=== PATIENT | female | born 1935 | race Caucasian/White ===

== ENCOUNTER 2017-05-20 08:50 | Inpatient (IN) | payer MEDICARE, OTHER ==
[2017-05-07 15:29] LABS: BASOPHILS # (AUTO) 0.1 X10'3 (0-0.2); BASOPHILS % (AUTO) 0.8 % (0-1); EOSINOPHILS # (AUTO) 0.3 X10'3 (0-0.9); LYMPHOCYTES # (AUTO) 1.2 X10'3 (1.1-4.8); LYMPHOCYTES % (AUTO) 16.9 % (21-51); MEAN CORPUSCULAR HGB CONC 33.9 % (33.0-36.5); MEAN CORPUSCULAR VOLUME 82.7 FL (78-98); MONOCYTES # (AUTO) 0.6 X10'3 (0-0.9); MONOCYTES % (AUTO) 8.8 % (2-12); NEUTROPHILS # (AUTO) 5.1 X10'3 (1.8-7.7); NEUTROPHILS % (AUTO) 69.5 % (42-75); PRE OP HEMATOCRIT 38.6 % (35.0-45.0); PRE OP HEMOGLOBIN 13.1 g/dL (12.0-16.0); PRE OP PLATELET COUNT 251 X10'3 (140-440); RED BLOOD COUNT 4.67 X10'6 (4.20-5.60); RED CELL DISTRIBUTION WIDTH 14.6 % (11.5-14.5)
[2017-05-07 15:43] LABS: PRE OP INR 0.9 INR; PRE OP PROTIME 9.6 SECONDS (9.0-12.0)
[2017-05-07 15:48] LABS: ALBUMIN 3.9 G/DL (3.4-5.0); ALBUMIN/GLOBULIN RATIO 1.2 (1.1-1.5); ALKALINE PHOSPHATASE 68 IU/L (46-116); BLOOD UREA NITROGEN 22 MG/DL (7-18); BUN/CREATININE RATIO 27.8 (6.6-38.0); CALCIUM 9.5 MG/DL (8.5-10.1); CHLORIDE 98 MMOL/L (99-107); CREATININE 0.79 MG/DL (0.40-0.90); PRE OP ALT 33 U/L (30-65); PRE OP ANION GAP 9 (8-16); PRE OP AST 33 U/L (10-37); PRE OP BILIRUB, TOTAL 0.3 MG/DL (0.0-1.0); PRE OP GLUCOSE 103 MG/DL (70-104); PRE OP POTASSIUM 3.7 MMOL/L (3.4-5.1); PRE OP SODIUM 137 MMOL/L (135-145); TOTAL CARBON DIOXIDE 30.2 MMOL/L (24-32); TOTAL PROTEIN 7.1 G/DL (6.4-8.2); eGFR 70 ML/MIN
[~2017-05-20] VITALS: Ht 149.9 cm; Wt 64.5 kg
[2017-05-20] VITALS (19 sets, daily range): BP systolic 92–175; BP diastolic 47–91
[~2017-05-20 08:50] MED LIST: ALEN70TA3 PO; ASPI-845 PO; ATEN-169 PO; CALC-1051 PO; CAPT25TA3 PO; DOCUMENT DATE & TIME OF BETA-BLOCKER PO ONE; HYDR25TA4 PO; MELO-100 PO; MIDAZolam 5mg/5ml vial ONE; MULT-38 PO; SIMV80TA2 PO; TRAM50TA2 PO; VANCOMYCIN INJ 1000 MG in NORMAL SALINE 250ml IV.SOLN IV ONE; cefazolin/dext.iso 2gm/50ml 50 ML IV ONE; famotidine 20mg tablet PO ONE; fentaNYL/PF 50MCG/1 ML 2ML syringe ONE; ringers solution, lacted 1,000 ML IV SCH; vancomycin 1,000mg inj ONE
[2017-05-20] MEDS ORDERED: proCHLORperazine 10 MG/2 ml inj IV PRN (09:00)
[2017-05-20] MEDS ORDERED: ringers solution, lacted 1,000 ML IV SCH (09:00)
[2017-05-20] MEDS ORDERED: ondansetron/PF 4mg/2ml inj IV PRN ×2 (09:00→12:15)
[2017-05-20] MEDS ORDERED: meperidine/PF 50mg/ml syringe IV PRN ×3 (09:00)
[2017-05-20] MEDS ORDERED: morphine 2 MG/ML inj. syringe IV PRN ×2 (09:00)
[2017-05-20] MEDS ORDERED: LIDOcaine 1% (10mg/ml) 2ml vial ONE (09:38)
[2017-05-20] MEDS ORDERED: famotidine 20mg tablet PO ONE (09:45)
[2017-05-20] MEDS ORDERED: ceFAZolin 1000mg inj ONE (09:57)
[2017-05-20] MEDS ORDERED: BUPIVAcaine/PF 7.5mg/ml (0.75%) 10ml vial ONE (10:39)
[2017-05-20] MEDS ORDERED: MORPHINE SULFATE/PF 0.5 MG/ML 10ML AMPUL ONE (10:40)
[2017-05-20] MEDS ORDERED: ePHEDrine 50MG/ML INJ. ONE (10:40)
[2017-05-20] MEDS ORDERED: fentaNYL/PF 50MCG/1 ML 2ML syringe ONE (10:40)
[2017-05-20] MEDS ORDERED: MIDAZolam 5mg/5ml vial ONE (10:41)
[2017-05-20] MEDS ORDERED: tranexamic acid inj. 1,000 MG in normal saline 100ml IV soln 90 ML IV ONE (11:20)
[2017-05-20] MEDS ORDERED: naloxone 2mg/2ml inj 1.3 MG in normal saline 500ml IV soln 500 ML IV PRN (12:11)
[2017-05-20] MEDS ORDERED: diphenhydrAMINE 50 mg/ml inj IV PRN (12:15)
[2017-05-20] MEDS ORDERED: albumin (Human) 5% 250ml 250 ML IV ONE (12:18)
[2017-05-20] MEDS ORDERED: bisacodyl 10mg suppository rectal RC PRN (14:10)
[2017-05-20] MEDS ORDERED: tranexamic acid inj. 650 MG in normal saline 100ml IV soln 100 ML IV ONE ×2 (14:10→17:00)
[2017-05-20] MEDS ORDERED: HYDROmorphone inj. 0.5 MG/0.5 ML DISP.SYRIN IV PRN (14:10)
[2017-05-20] MEDS ORDERED: magnesium hydroxide 30ml (MOM) UD suspension PO PRN (14:10)
[2017-05-20] MEDS ORDERED: acetaminophen 325mg tablet PO PRN (14:10)
[2017-05-20] MEDS ORDERED: diphenhydrAMINE 25mg capsule PO PRN ×2 (14:10)
[2017-05-20] MEDS: cefazolin 1gm/NS 100mL 100 ML IV SCH ×2 (17:23→23:35)
[2017-05-20] MEDS: potassium cl 20mEq in 1/2 NS 1,000 ML IV SCH (17:23)
[2017-05-20] MEDS: aspirin 81mg tablet.DR PO SCH (17:24)
[2017-05-20] MEDS ORDERED: vancomycin/NS 1 GM ADD-VANTAGE 250 ML IV SCH (20:00)
[2017-05-20] MEDS: sennosides 8.6mg tablet PO SCH (21:12)
[2017-05-20] MEDS: HYDROcodone/acetaminophen 10/325mg tab PO PRN (21:12)
[2017-05-21] MEDS: ondansetron/PF 4mg/2ml inj IV PRN ×2 (01:04→21:44)
[2017-05-21] MEDS: HYDROcodone/acetaminophen 10/325mg tab PO PRN ×6 (01:05→21:45)
[2017-05-21] MEDS: potassium cl 20mEq in 1/2 NS 1,000 ML IV SCH ×3 (03:29→21:46)
[2017-05-21 06:00] VITALS: BP 111/44
[2017-05-21 06:22] LABS: BASOPHILS % (AUTO) 0.3 % (0-1); EOSINOPHILS # (AUTO) 0.1 X10'3 (0-0.9); EOSINOPHILS % (AUTO) 1.4 % (0-6); HEMATOCRIT 26.1 % (35.0-45.0); HEMOGLOBIN 9.1 g/dl (12.0-16.0); LYMPHOCYTES # (AUTO) 0.7 X10'3 (1.1-4.8); LYMPHOCYTES % (AUTO) 8.5 % (21-51); MEAN CORPUSCULAR HEMOGLOBIN 28.3 PG (27.0-31.0); MEAN CORPUSCULAR HGB CONC 34.7 % (33.0-36.5); MEAN CORPUSCULAR VOLUME 81.7 FL (78-98); MEAN PLATELET VOLUME 6.8 FL (7.4-10.4); MONOCYTES # (AUTO) 0.6 X10'3 (0-0.9); MONOCYTES % (AUTO) 7.1 % (2-12); NEUTROPHILS # (AUTO) 6.9 X10'3 (1.8-7.7); NEUTROPHILS % (AUTO) 82.7 % (42-75); PLATELET COUNT 180 X10'3 (140-440); RED CELL DISTRIBUTION WIDTH 15.8 % (11.5-14.5); WHITE BLOOD COUNT 8.3 X10'3 (4.5-11.0)
[2017-05-21 06:52] LABS: ANION GAP 8 (8-16); CHLORIDE 101 MMOL/L (99-107); POTASSIUM 3.9 MMOL/L (3.5-5.1); SODIUM 135 MMOL/L (135-145); TOTAL CARBON DIOXIDE 26.4 MMOL/L (24-32)
[2017-05-21] MEDS: HYDROchlorothiazide 25mg tablet PO SCH (08:00)
[2017-05-21] MEDS: aspirin 81mg tablet.DR PO SCH ×2 (09:34→16:44)
[2017-05-21] MEDS: lisinopril 10 MG tablet PO SCH (09:34)
[2017-05-21] MEDS: atenolol 50mg tablet PO SCH (09:34)
[2017-05-21 10:00] VITALS: BP 105/51
[2017-05-21 18:00] VITALS: BP 105/66
[2017-05-21] MEDS: sennosides 8.6mg tablet PO SCH (21:45)
[2017-05-21 22:00] VITALS: BP 101/48
[2017-05-22] MEDS: HYDROcodone/acetaminophen 10/325mg tab PO PRN ×5 (05:54→22:53)
[2017-05-22 06:00] VITALS: BP 130/60
[2017-05-22 06:03] LABS: BASOPHILS % (AUTO) 0.2 % (0-1); EOSINOPHILS # (AUTO) 0.2 X10'3 (0-0.9); EOSINOPHILS % (AUTO) 2.3 % (0-6); HEMATOCRIT 25.3 % (35.0-45.0); HEMOGLOBIN 8.8 g/dl (12.0-16.0); LYMPHOCYTES # (AUTO) 0.6 X10'3 (1.1-4.8); LYMPHOCYTES % (AUTO) 7.9 % (21-51); MEAN CORPUSCULAR HEMOGLOBIN 28.6 PG (27.0-31.0); MEAN CORPUSCULAR HGB CONC 34.6 % (33.0-36.5); MEAN CORPUSCULAR VOLUME 82.6 FL (78-98); MEAN PLATELET VOLUME 6.5 FL (7.4-10.4); MONOCYTES # (AUTO) 0.6 X10'3 (0-0.9); MONOCYTES % (AUTO) 7.9 % (2-12); NEUTROPHILS # (AUTO) 6.5 X10'3 (1.8-7.7); NEUTROPHILS % (AUTO) 81.7 % (42-75); PLATELET COUNT 174 X10'3 (140-440); RED BLOOD COUNT 3.06 X10'6 (4.20-5.60)
[2017-05-22] MEDS: lisinopril 10 MG tablet PO SCH (07:59)
[2017-05-22] MEDS: HYDROchlorothiazide 25mg tablet PO SCH (07:59)
[2017-05-22] MEDS: aspirin 81mg tablet.DR PO SCH ×2 (07:59→17:29)
[2017-05-22] MEDS: atenolol 50mg tablet PO SCH (07:59)
[2017-05-22 10:00] VITALS: BP 96/43
[2017-05-22 18:00] VITALS: BP 129/62
[2017-05-22] MEDS: ondansetron/PF 4mg/2ml inj IV PRN (19:02)
[2017-05-22] MEDS: sennosides 8.6mg tablet PO SCH (20:22)
[2017-05-22 22:00] VITALS: BP 105/50
[2017-05-23] MEDS: HYDROcodone/acetaminophen 10/325mg tab PO PRN ×2 (05:30→10:38)
[2017-05-23 06:00] VITALS: BP 138/67
[2017-05-23 07:33] LABS: BASOPHILS % (AUTO) 0.2 % (0-1); EOSINOPHILS # (AUTO) 0.2 X10'3 (0-0.9); EOSINOPHILS % (AUTO) 2.9 % (0-6); HEMATOCRIT 24.3 % (35.0-45.0); HEMOGLOBIN 8.2 g/dl (12.0-16.0); LYMPHOCYTES # (AUTO) 0.6 X10'3 (1.1-4.8); LYMPHOCYTES % (AUTO) 7.9 % (21-51); MEAN CORPUSCULAR HGB CONC 33.9 % (33.0-36.5); MEAN CORPUSCULAR VOLUME 82.7 FL (78-98); MEAN PLATELET VOLUME 7.1 FL (7.4-10.4); MONOCYTES # (AUTO) 0.5 X10'3 (0-0.9); MONOCYTES % (AUTO) 6.8 % (2-12); NEUTROPHILS # (AUTO) 6.2 X10'3 (1.8-7.7); NEUTROPHILS % (AUTO) 82.2 % (42-75); PLATELET COUNT 199 X10'3 (140-440); RED BLOOD COUNT 2.93 X10'6 (4.20-5.60); RED CELL DISTRIBUTION WIDTH 16.6 % (11.5-14.5); WHITE BLOOD COUNT 7.5 X10'3 (4.5-11.0)
[2017-05-23] MEDS: aspirin 81mg tablet.DR PO SCH (08:18)
[2017-05-23] MEDS: lisinopril 10 MG tablet PO SCH (08:18)
[2017-05-23] MEDS: atenolol 50mg tablet PO SCH (08:18)
[2017-05-23] MEDS: HYDROchlorothiazide 25mg tablet PO SCH (08:18)
[2017-05-23 10:00] VITALS: BP 129/85
== END 2017-05-23 14:30 | disposition home or self-care (01) | DRG 470 ==
LOC: PAS IN 08:50 → EDSTATUS 10:45 → ORTHO 4S 15:49
PROVIDERS: ADMIT Orthopaedic Surgery; ATTEND Orthopaedic Surgery
PROC: 0SR9019 Replacement of Right Hip Joint with Metal Synthetic Substitute, Cemented, Open Approach (ICD-10-PCS; principal; 2017-05-20 10:40)
DX: M16.11 Unilateral primary osteoarthritis, right hip (principal); Z96.642 Presence of left artificial hip joint; D62 Acute posthemorrhagic anemia; E78.5 Hyperlipidemia, unspecified; I10 Essential (primary) hypertension; M81.0 Age-related osteoporosis without current pathological fracture; Z79.899 Other long term (current) drug therapy; Z96.651 Presence of right artificial knee joint
CPT/HCPCS: 36415; 80051; 80053; 85025; 85610; 85730; 86870; 86885; 86900; 86901; 86902; 86905; 86920; 86922; 87070; 97110; 97116; 97162; 97530; A6223; A6253; A6449; A7000; C1713; C1758; C1776; J0690; J1644; J2250; J2274; J2405; J3010; J3370; J3490; J7030; J7120; P9045

== ENCOUNTER 2020-09-19 05:52 | Day surgery (SDC) | payer MEDICARE, OTHER ==
[2020-09-11 12:05] LABS: BASOPHILS % (AUTO) 0.8 % (0-1); EOSINOPHILS # (AUTO) 0.2 X10'3 (0-0.9); EOSINOPHILS % (AUTO) 2.8 % (0-6); LYMPHOCYTES # (AUTO) 1.1 X10'3 (1.1-4.8); LYMPHOCYTES % (AUTO) 18.2 % (21-51); MEAN CORPUSCULAR HEMOGLOBIN 29.6 PG (27.0-31.0); MEAN CORPUSCULAR HGB CONC 33.4 g/dL (33.0-36.5); MEAN CORPUSCULAR VOLUME 88.7 FL (78-98); MEAN PLATELET VOLUME 6.8 FL (7.4-10.4); MONOCYTES # (AUTO) 0.5 X10'3 (0-0.9); MONOCYTES % (AUTO) 7.6 % (2-12); NEUTROPHILS # (AUTO) 4.3 X10'3 (1.8-7.7); NEUTROPHILS % (AUTO) 70.6 % (42-75); PRE OP HEMATOCRIT 39.9 % (35.0-45.0); PRE OP HEMOGLOBIN 13.3 g/dL (12.0-16.0); PRE OP PLATELET COUNT 222 X10'3 (140-440); RED CELL DISTRIBUTION WIDTH 12.6 % (11.5-14.5)
[2020-09-11 12:17] LABS: PRE OP PROTIME 10.3 SECONDS (9.0-12.0)
[2020-09-11 12:23] LABS: ALBUMIN 3.9 G/DL (3.4-5.0); ALBUMIN/GLOBULIN RATIO 1.1 (1.1-1.5); ALKALINE PHOSPHATASE 53 IU/L (46-116); BLOOD UREA NITROGEN 18 MG/DL (7-18); BUN/CREATININE RATIO 20.7 (6.6-38.0); CALCIUM 9.4 MG/DL (8.5-10.1); CHLORIDE 100 MMOL/L (99-107); CREATININE 0.87 MG/DL (0.40-0.90); PRE OP ALT 31 U/L (30-65); PRE OP ANION GAP 7 (8-16); PRE OP AST 31 U/L (10-37); PRE OP BILIRUB, TOTAL 0.3 MG/DL (0.0-1.0); PRE OP GLUCOSE 91 MG/DL (70-104); PRE OP POTASSIUM 3.6 MMOL/L (3.4-5.1); PRE OP SODIUM 137 MMOL/L (135-145); TOTAL CARBON DIOXIDE 30.5 MMOL/L (24-32); TOTAL PROTEIN 7.3 G/DL (6.4-8.2); eGFR 62 ML/MIN
[~2020-09-19] VITALS: Ht 149.9 cm; Wt 47.3 kg
[2020-09-19] VITALS (18 sets, daily range): BP systolic 105–161; BP diastolic 38–87
[~2020-09-19 05:52] MED LIST changes: -ALEN70TA3 PO; -ASPI-845 PO; -CALC-1051 PO; +CALC600T22 PO; -MIDAZolam 5mg/5ml vial ONE; +MULT-1141 PO; -MULT-38 PO; +SIMV-42 PO; -SIMV80TA2 PO; +cefazolin/dext.iso 2gm/100ml IV ONE; -cefazolin/dext.iso 2gm/50ml 50 ML IV ONE; -fentaNYL/PF 50MCG/1 ML 2ML syringe ONE; -ringers solution, lacted 1,000 ML IV SCH; +tranexamic acid inj. 1,000 MG in normal saline 100 ML IV ONE; -vancomycin 1,000mg inj ONE
[2020-09-19] MEDS ORDERED: vancomycin 1,000mg inj ONE (07:12)
[2020-09-19] MEDS ORDERED: ROPIVAcaine 0.5% (5mg/ml) 30ml vial ONE ×2 (07:12→07:52)
[2020-09-19] MEDS ORDERED: cloNIDine hcl/PF 100mcg/ml inj ONE (07:12)
[2020-09-19] MEDS ORDERED: tetracaine 1% (10mg/ml) pres. free inj. ONE (07:13)
[2020-09-19] MEDS ORDERED: ringers solution, lacted 1,000 ML IV SCH (07:15)
[2020-09-19] MEDS ORDERED: morphine 4 MG/ML inj SYRINge IV PRN (07:15)
[2020-09-19] MEDS ORDERED: hydrALAZINE 20mg/ml inj. IV PRN (07:15)
[2020-09-19] MEDS ORDERED: morphine 2 MG/ML inj. syringe IV PRN (07:15)
[2020-09-19] MEDS ORDERED: fentaNYL/PF 50MCG/1 ML 2ML syringe IV PRN ×2 (07:15)
[2020-09-19] MEDS ORDERED: ondansetron/PF 4mg/2ml inj IV PRN ×2 (07:15→10:25)
[2020-09-19] MEDS ORDERED: labetalol 20mg/4ml (5mg/ml) syringe IV PRN (07:15)
[2020-09-19] MEDS ORDERED: MIDAZolam 1mg/ml 10ml vial ONE (07:25)
[2020-09-19] MEDS ORDERED: morphine /PF 1mg/ml 10ml inj. ONE (07:25)
[2020-09-19] MEDS: ringers solution, lacted 1,000 ML IV SCH ×2 (07:26→12:45)
[2020-09-19] MEDS ORDERED: sevoflurane 250ml liquid IH ONE (08:17)
--- NOTE | 2020-09-19 10:21 | NUR ---
Received from OR via , accompanied by Anesthesiologist DR GIRALDO and report given by Anesthesiolgist. PT PRESENTS WITH PIV 18G LEFT HAND, LEFT KNEE DRESSING DRY AND INTACT WITH SYBIL AND POWDER PACK. VSS Addendum: 09/19/20 at 1045 by Joselyn Williamson RN, RN Amended: Links added.
[2020-09-19] MEDS ORDERED: diphenhydrAMINE 25mg capsule PO PRN ×2 (10:25)
[2020-09-19] MEDS ORDERED: bisacodyl 10mg suppository rectal RC PRN (10:25)
[2020-09-19] MEDS ORDERED: acetaminophen 325mg tablet PO PRN (10:25)
[2020-09-19] MEDS ORDERED: magnesium hydroxide 30ml (MOM) UD suspension PO PRN (10:25)
--- NOTE | 2020-09-19 11:04 | NUR ---
PT'S SON SALLY CESAR I CALLED WITH AN UPDATE ON HIS MOTHER. I GAVE HIM HER ROOM NUMBER [id number]. HE WOULD LIKE A CALL WHEN SHE IS BEING LDISCHARGED. Addendum: 09/19/20 at 1106 by Joselyn Williamson RN, RN Amended: Links added.
--- NOTE | 2020-09-19 11:21 | NUR ---
PACU DISCHARGE CRITERIA MET, REPORT GIVEN TO ORTHO FLOOR JOSE DE JESUS VELASQUEZ. DENIES PAIN OR DISCOMFORT. PT IS STABLE AND ADEQUATELY RECOVERED FROM ANESTHESIA. PT HAS STABLE AIRWAY PATENCY, RESPIRATORY FUNCTION TO INCLUDE RESPIRATORY RATE AND O2 SAT. HEART RATE, BLOOD PRESSURE STABLE AND HYDRATION ADEQUATE. MENTAL STATUS IS APPROPRIATE. PAIN AND NAUSEA CONTROLLED. Addendum: 09/19/20 at 1126 by Joselyn Williamson RN, RN Amended: Links added.
[2020-09-19] MEDS: aspirin 81mg tablet.DR PO SCH (12:52)
[2020-09-19] MEDS: potassium Cl 20mEq in NS 1,000 ML IV SCH (12:59)
[2020-09-19] MEDS: HYDROcodone/acetaminophen 10/325mg tab PO PRN ×2 (16:08→20:17)
[2020-09-19] MEDS: ceFAZolin/D5W- 1GM premix 50 ML IV SCH (16:09)
--- NOTE | 2020-09-19 18:30 | NUR ---
Patient in room ORTHO 4007. I have received report from Radha VELASQUEZ and had the opportunity to ask questions and assume patient care.
--- NOTE | 2020-09-19 19:13 | NUR ---
Pt awake in room, ate dinner, no current concerns. Lissa VELASQUEZ given report.
[2020-09-19] MEDS: captoPRIL 25mg tablet PO SCH (20:00)
[2020-09-19] MEDS ORDERED: vancomycin/NS 1 GM ADD-VANTAGE 250 ML IV SCH (20:00)
[2020-09-19] MEDS ORDERED: atenolol 50mg tablet PO SCH (21:00)
[2020-09-19] MEDS ORDERED: sennosides 8.6mg tablet PO SCH (21:00)
[2020-09-19] MEDS: HYDROmorphone inj. 0.5 MG/0.5 ML DISP.SYRIN IV PRN (23:10)
[2020-09-20] MEDS: ceFAZolin/D5W- 1GM premix 50 ML IV SCH (00:08)
[2020-09-20] MEDS: HYDROcodone/acetaminophen 10/325mg tab PO PRN ×4 (00:09→13:37)
[2020-09-20 02:00] VITALS: BP 122/54
[2020-09-20] MEDS: potassium Cl 20mEq in NS 1,000 ML IV SCH (02:46)
[2020-09-20] MEDS: HYDROmorphone inj. 0.5 MG/0.5 ML DISP.SYRIN IV PRN ×2 (02:50→07:46)
--- NOTE | 2020-09-20 06:25 | NUR ---
Problems reprioritized. Patient report given, questions answered & plan of care reviewed with Margo VELASQUEZ and Raul VELASQUEZ.
[2020-09-20 07:29] LABS: BASOPHILS % (AUTO) 0.2 % (0-1); EOSINOPHILS % (AUTO) 0.1 % (0-6); HEMATOCRIT 30.3 % (35.0-45.0); HEMOGLOBIN 10.3 g/dl (12.0-16.0); LYMPHOCYTES # (AUTO) 0.4 X10'3 (1.1-4.8); LYMPHOCYTES % (AUTO) 5.1 % (21-51); MEAN CORPUSCULAR HEMOGLOBIN 29.7 PG (27.0-31.0); MEAN CORPUSCULAR HGB CONC 33.9 g/dL (33.0-36.5); MEAN CORPUSCULAR VOLUME 87.6 FL (78-98); MEAN PLATELET VOLUME 6.7 FL (7.4-10.4); MONOCYTES # (AUTO) 0.8 X10'3 (0-0.9); MONOCYTES % (AUTO) 9.4 % (2-12); NEUTROPHILS % (AUTO) 85.2 % (42-75); PLATELET COUNT 188 X10'3 (140-440); RED BLOOD COUNT 3.46 X10'6 (4.20-5.60); RED CELL DISTRIBUTION WIDTH 12.8 % (11.5-14.5); WHITE BLOOD COUNT 8.2 X10'3 (4.5-11.0)
[2020-09-20] MEDS: captoPRIL 25mg tablet PO SCH (07:30)
[2020-09-20] MEDS: aspirin 81mg tablet.DR PO SCH ×2 (07:30→13:37)
[2020-09-20 07:50] LABS: ALANINE AMINOTRANSFERASE 23 U/L (12-78); ALBUMIN 2.7 G/DL (3.4-5.0); ALBUMIN/GLOBULIN RATIO 0.9 (1.1-1.5); ALKALINE PHOSPHATASE 36 IU/L (46-116); ANION GAP 10 (8-16); ASPARTATE AMINO TRANSFERASE 29 U/L (10-37); BILIRUBIN,TOTAL 0.4 MG/DL (0.1-1.0); BLOOD UREA NITROGEN 12 MG/DL (7-18); BUN/CREATININE RATIO 13.5 (6.6-38.0); CALCIUM 7.8 MG/DL (8.5-10.1); CHLORIDE 100 MMOL/L (99-107); CREATININE 0.89 MG/DL (0.40-0.90); GLUCOSE 157 MG/DL (70-104); POTASSIUM 3.6 MMOL/L (3.5-5.1); SODIUM 134 MMOL/L (135-145); TOTAL CARBON DIOXIDE 24.4 MMOL/L (24-32); TOTAL PROTEIN 5.7 G/DL (6.4-8.2); eGFR 60 ML/MIN
[2020-09-20] MEDS ORDERED: HYDROchlorothiazide 25mg tablet PO SCH (08:00)
[2020-09-20] MEDS ORDERED: ASPI-1071 PO (11:39)
[2020-09-20] MEDS ORDERED: HYDR-3972 PO (11:39)
== END 2020-09-20 14:15 | disposition home or self-care (01) ==
LOC: PAS 05:52 → ORTHO 4S 10:24 → PAS 09-20 14:15
PROVIDERS: ATTEND Orthopaedic Surgery
DX: M17.12 Unilateral primary osteoarthritis, left knee (principal); I10 Essential (primary) hypertension; G47.30 Sleep apnea, unspecified; M85.80 Other specified disorders of bone density and structure, unspecified site; G89.18 Other acute postprocedural pain; Z96.651 Presence of right artificial knee joint; Z96.642 Presence of left artificial hip joint; Z90.710 Acquired absence of both cervix and uterus; Z79.01 Long term (current) use of anticoagulants; Z79.899 Other long term (current) drug therapy
CPT/HCPCS: 27447; 36415; 64447; 76942; 80053; 82948; 85025; 85610; 85730; 86885; 86900; 86901; 86922; 87081; 93005; 97110; 97116; 97161; 97530; C1713; C1758; C1776; J0690; J0735; J1170; J2250; J2270; J2405; J3370; J3480; J7120; 86920; A6455; A7000; A9272; G0378; J2795